=== PATIENT | female | born 1960 | race Hispanic/Latino ===

== ENCOUNTER 2018-08-11 18:29 | Emergency (ER) | payer BC, SELFPAY ==
[2018-08-11 18:29] VITALS: BP 162/81; PULSE 62; RESP 15; TEMP 36.8; O2SAT 97; BMI 30.4
--- NOTE | 2018-08-11 18:42 | EKG12_ITS ---
Test Reason : CP Blood Pressure : / mmHG Vent. Rate : 059 BPM Atrial Rate : 059 BPM P-R Int : 136 ms QRS Dur : 092 ms QT Int : 440 ms P-R-T Axes : 000 021 018 degrees QTc Int : 435 ms Sinus bradycardia Nonspecific T Wave Abnormality Confirmed by MARCELA JONES, KATIANA ([id number]), medical transcription editor SHANI TAYLOR ([id number]) on 08/14/2018 3:35:11 PM Referred By: MONTRELL Confirmed By:KATIANA MEDRANO MD
--- NOTE | 2018-08-11 20:27 | ED.VISSUMM ---
- ER Visit Summary Date of Service: 08/11/18 Chief Complaint: Left upper back, neck and shoulder discomfort. History of Present Illness: The patient is a 58 F past male history of high cholesterol. Patient states for the last week she is in intermittent upper back shoulder and neck discomfort. No chest pain. No shortness of breath. This is not exertional. She has had prior cardiac work-ups for similar pain all of which were negative with a recent stress test in the last 2 to 3 years. She states is worse to sit down or move her neck or shoulder she really does not seem like exertion plays any part in it at all and is definitely not worse and may actually be better with walking. She denies any fall or trauma. No fever. No prior neck or shoulder surgeries. Physical Examination: Well-appearing middle-aged female. Vital signs are stable afebrile. Pulse ox 97% room air no hypoxia. HEENT exam unremarkable. Normal. Neck nontender. No lymphadenopathy. Trachea midline. Normal range of motion to her neck with flexion and extension and rotation. Lungs clear to oscillation bilaterally. Heart regular rate and rhythm no murmur. Chest is completely nontender. Abdomen soft and nontender. She is moving all 4 extremities. Neurovascular intact. 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 Dorsi and plantar flexion intact. She has normal strength and sensation and range of motion both upper and lower extremities. With some movement of her neck the pain is mildly worse. There is no radiculopathy in her upper extremities. Back exam left upper shoulder is back has mild tenderness. There is no ecchymosis or bruising. No signs of trauma. Spine is nontender. Neurologic exam normal. Normal strength and sensation. No focal deficits. Test Results: EKG was done by the nurses due to triage protocol shows a sinus rhythm rate of 59 no acute signs of PR or ischemia. Clinically this is not sound like it is cardiac. Emergency Department Course and Treatment: Musculoskeletal neck and shoulder pain. Treatment Plan: Patient states this gets better at home with Tylenol. She will use Tylenol Motrin at home. Hot shower, warm bath and ice to the area. Follow-up with her primary care physician next week if not improving. Return to ER if worse. Disposition: Discharge Impression: Musculoskeletal left upper back, neck and shoulder pain. This note was generated with [employer] software. It may contain incorrect words, spelling, and punctuation that were not noted in review of the chart prior to signing ED Disposition - Plan for ED Patient: Referrals: Denis Pineda DO [Primary Care Provider] -
--- NOTE | 2018-08-11 20:30 | ED.DCSUM_ITS ---
- ER Visit Summary Date of Service: 08/11/18 Chief Complaint: Left upper back, neck and shoulder discomfort. History of Present Illness: The patient is a 58 F past male history of high cholesterol. Patient states for the last week she is in intermittent upper back shoulder and neck discomfort. No chest pain. No shortness of breath. This is not exertional. She has had prior cardiac work-ups for similar pain all of which were negative with a recent stress test in the last 2 to 3 years. She states is worse to sit down or move her neck or shoulder she really does not seem like exertion plays any part in it at all and is definitely not worse and may actually be better with walking. She denies any fall or trauma. No fever. No prior neck or shoulder surgeries. Physical Examination: Well-appearing middle-aged female. Vital signs are stable afebrile. Pulse ox 97% room air no hypoxia. HEENT exam unremarkable. Normal. Neck nontender. No lymphadenopathy. Trachea midline. Normal range of motion to her neck with flexion and extension and rotation. Lungs clear to oscillation bilaterally. Heart regular rate and rhythm no murmur. Chest is completely nontender. Abdomen soft and nontender. She is moving all 4 extremities. Neurovascular intact. Equal symmetrical 5 out of 5 telehealth case manager strength. Dorsi and plantar flexion intact. She has normal strength and sensation and range of motion both upper and lower extremities. With some movement of her neck the pain is mildly worse. There is no radiculopathy in her upper extremities. Back exam left upper shoulder is back has mild tenderness. There is no ecchymosis or bruising. No signs of trauma. Spine is nontender. Neurologic exam normal. Normal strength and sensation. No focal deficits. Test Results: EKG was done by the nurses due to triage protocol shows a sinus rhythm rate of 59 no acute signs of IN or ischemia. Clinically this is not sound like it is cardiac. Emergency Department Course and Treatment: Musculoskeletal neck and shoulder pain. Treatment Plan: Patient states this gets better at home with Tylenol. She will use Tylenol Motrin at home. Hot shower, warm bath and ice to the area. Follow- up with her primary care physician next week if not improving. Return to ER if worse. Disposition: Discharge Impression: Musculoskeletal left upper back, neck and shoulder pain. This note was generated with [employer] software. It may contain incorrect words, spelling, and punctuation that were not noted in review of the chart prior to signing ED Disposition - Plan for ED Patient: Referrals: Denis Pineda DO [Primary Care Provider] -
--- NOTE | 2018-08-11 20:30 | ED.DEP ---
ED Disposition - Plan for ED Patient: Disposition: Home or Assisted Living Instructions: ED Neck Pain No Trauma Referrals: Denis Pineda DO [Primary Care Provider] - 3-5 Days if not improving Additional Instructions: Tylenol and Motrin for pain and inflammation. Hot shower warm bath the muscles and ice to the area. Follow up with your doctor if not improving return to ER feeling worse. Clinically you have a normal exam and EKG I suspect this is a musculoskeletal pain.
--- NOTE | 2018-08-11 20:44 | ED.RN ---
DISCHARGE INSTRUCTIONS GIVEN TO AND REVIEWED WITH PATIENT, PATIENT DENIES QUESTIONS OR CONCERNS AND VOICES UNDERSTANDING OF DISCHARGE INSTRUCTIONS. PT AMBULATES OUT OF ROOM WITHOUT DIFFICULTY.
== END 2018-08-11 20:45 | disposition home or self-care (01) ==
PROVIDERS: Emergency Provider Emergency Medicine; Family Provider Student in an Organized Health Care Education/Training Program; PCP Student in an Organized Health Care Education/Training Program
DX: M54.6 Pain in thoracic spine (principal); M54.2 Cervicalgia; M25.512 Pain in left shoulder; E78.00 Pure hypercholesterolemia, unspecified
CPT/HCPCS: 93005; 99283

== ENCOUNTER 2019-06-03 00:05 | Emergency (ER) | payer BC, OTHER, SELFPAY ==
[2019-06-03] VITALS (7 sets, daily range): BP systolic 97–144; BP diastolic 46–69; PULSE 89–109; RESP 18–34; TEMP 37.3–37.9; O2SAT 93–96; BMI 30.7
--- NOTE | 2019-06-03 00:50 | RAD_ITS ---
HISTORY: FEVER AND COUGH ADDITIONAL HISTORY: None provided. COMPARISON: 01/14/2017 TECHNIQUE: Frontal and lateral chest radiographs. Number of images including paperwork: 2 FINDINGS: LUNGS AND PLEURA: No consolidation, mass or pleural effusion. Peribronchial thickening. CARDIAC SILHOUETTE: Stable. MEDIASTINUM AND CHERRY: Aortic tortuosity. UPPER ABDOMEN: Gaseous bowel distention in the upper abdomen. SKELETON AND SOFT TISSUES: No acute findings. Degenerative changes. OTHER DEVICES AND HARDWARE: None. RAD/Chest PA and Lateral IMPRESSION: Peribronchial thickening as can be seen with bronchitis and airways disease. at 0150 Reported and signed by: Meeta Hartman MD Electronically Signed: Meeta Hartman MD at 1:50 EST Tel , Service support ,
--- NOTE | 2019-06-03 00:51 | ED.VISSUMM ---
- ER Visit Summary Date of Service: 06/03/19 Chief Complaint: Fever and cough History of Present Illness: The patient is a 59 F who presents with a fever and cough that began yesterday. Patient states her fever at home was up to 105. Patient took Tylenol tonight prior to arrival. Patient admits to a cough but denies any sputum production. Patient states she feels wheezing in her chest at times. Patient also admits to some dysuria and hematuria. Patient states the pain radiates into her back. Patient denies any chest pain. Patient denies any nausea or vomiting but admits to some diarrhea. 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 Physical Examination: Vital signs are stable except for mild tachycardia of 109 and a mild tachypnea of 24. Patient is afebrile here. Patient is in no acute distress. Oral mucosa is pink and moist. Oropharynx is clear. Neck is supple. Trachea is midline. There is no JVD. Heart was regular and tachycardic. Lungs showed scattered rhonchi and wheezing. There is good respiratory effort. There is no retractions noted. Abdomen is soft. Bowel sounds are normal. There is no tenderness. Cranial nerves II through XII are intact. There are no focal motor or sensory deficits noted. Test Results: CBC was normal. Comprehensive metabolic profile was essentially within normal limits. Urinalysis does not show any evidence of urinary tract infection. PA and lateral chest x-ray was obtained. There is peribronchial thickening consistent with viral bronchitis. Emergency Department Course and Treatment: Patient was given IV fluids and DuoNeb aerosol here. Patient was advised of her results. Patient was instructed to drink plenty of fluids at home. Patient was instructed to take Tylenol or ibuprofen as needed for pain or fever. Patient was instructed to follow-up with her primary care physician in 5 to 7 days. Patient understood and was agreeable with the plan. All questions were answered. Disposition: Discharge home Impression: Viral bronchitis This note was generated with [employer] dictation software. It may contain incorrect words, spelling, and punctuation that were not noted in review of the chart prior to signing ED Disposition - Plan for ED Patient: Disposition: Home or Assisted Living Diagnosis: Viral bronchitis Instructions: BRONCHITIS, No Antibiotic (Adult) Referrals: Denis Pineda DO [Primary Care Provider] - 5-7 Days
[2019-06-03] MEDS: Ipratropium/Albuterol Sulfate 3 ML AMPUL.NEB INHALATION (00:56)
[2019-06-03] MEDS: 0.9% Normal Saline 1,000 ML 1000 ML IV ×2 (01:14→02:05)
[2019-06-03 01:22] LABS: Absolute Lymphocyte Count 0.52 X10^3/uL (0.83-4.51); Absolute Neutrophil Count 6.4 X10^3/uL (2.0-7.7); Basophil# 0.02 X10^3/uL; Basophil% 0.3 % (0-1); Eosinophil# 0.02 X10^3/uL; Eosinophils% 0.3 % (0-5); Hematocrit 43.6 % (37-47); Hemoglobin 14.4 g/dL (12.0-15.0); Lymphocyte # 0.52 X10^3/ul (4.0); Lymphocyte % 6.9 % (19-41); Mean Corpuscular Hgb 27.5 pg (27.0-32.0); Mean Corpuscular Volume 83.4 fL (81-99); Mean Platelet Vol. 11.2 fl (6.2-12.0); Monocyte# 0.58 X10^3/uL; Monocyte% 7.7 % (0-10); NRBC Flagged by Analyzer 0 % (0-5); Neutrophil # 6.35 X10^3/uL (2.7-7.7); Neutrophil % 84.3 % (47-70); POSITIVE DIFFERENTIAL YES; Platelet Count 171 K/mm3 (150-450); RBC Distribution Width CV 12.3 % (11.6-14.6); RBC Distribution Width SD 37.4 fl (35.1-43.9); Red Blood Count 5.23 M/mm3 (4.2-5.4); White Blood Count 7.5 K/mm3 (4.4-11.0)
[2019-06-03 01:25] LABS: Mucous, Urine 0 SEEN /hpf (<or=2+)
[2019-06-03 01:25] LABS: Differential Indicated SCAN CRITERIA MET
[2019-06-03 01:37] LABS: ALB/GLOB Ratio 0.9 RATIO (0.9-2.4); AST(SGOT) 20 U/L (15-37); Alanine Aminotransfer ALT/SGPT 30 U/L (13-56); Albumin, Serum 3.6 g/dL (3.2-5.0); Alkaline Phosphatase 90 U/L (45-117); Anion Gap 5 (5-15); BUN 10 mg/dL (7-18); BUN/Creat Ratio 13.7 RATIO (10-20); Calcium,Total 8.7 mg/dL (8.5-10.1); Chloride 101 mmol/L (98-107); Creatinine, Serum 0.73 mg/dL (0.55-1.02); EST Glomerular Filtration Rate 87 mL/min (>60); Est Glom Filt Rate - Afr Amer 106 mL/min (>60); Estimated Creatinine Clearance 70.34 ml/min; Glucose 121 mg/dL (74-106); Potassium 3.8 mmol/L (3.5-5.1); Protein, Total 7.6 g/dL (6.4-8.2); Sodium Level 134 mmol/L (136-145)
[2019-06-03 01:41] LABS: Color, Urine Yellow (Yellow); Glucose, Dipstick Normal (Normal); Ketone-Dipstick Negative (Negative); Leukocyte Esterase-Dipstick Negative /ul (Negative); Nitrite-Dipstick Negative (Negative); Occult Blood-Urine 250 /ul (Negative); Protein-Dipstick 30 mg/dl (Negative); Urine Bilirubin Dipstick Negative (Negative); Urine Clarity Sl. Cloudy (Clear); Urine Urobilinogen 1 mg/dl (Normal); Urine pH 6.5 (5.0 - 8.0)
[2019-06-03 01:48] LABS: Bacteria 1+ /hpf (None Seen); Red Blood Cells-Urine 5-10 SEEN /hpf (0-5); Squamous Epithelial Cells - UA 0-5 SEEN /hpf (5-10); White Blood Cells 0-5 SEEN /hpf (0-5)
== END 2019-06-03 03:54 | disposition home or self-care (01) ==
PROVIDERS: Emergency Provider Emergency Medicine; PCP Student in an Organized Health Care Education/Training Program
DX: J20.8 Acute bronchitis due to other specified organisms (principal)
CPT/HCPCS: 71046; 80053; 81001; 85025; 94640; 96360; 96361; 99284; J7030; A4216

== ENCOUNTER 2019-06-05 00:11 | Emergency (ER) | payer BC, SELFPAY ==
[2019-06-03 00:07] VITALS: BMI 30.7
[2019-06-05 00:12] VITALS: BP 121/73; PULSE 74; RESP 20; TEMP 36.9; O2SAT 94; BMI 30.1
--- NOTE | 2019-06-05 00:59 | RAD_ITS ---
STUDY: X-RAY CHEST REASON FOR EXAM: Female, 59 years old. WAS JUST SEEN TUESDAY FOR A COUGH, NOT FEELING ANY BETTER SO SHE CAME BACK IN TECHNIQUE: PA and lateral views of the chest. COMPARISON: June 03, 2019 chest x-ray FINDINGS: The lungs are clear and expanded. The suggestion of mild peribronchial thickening. Normal size heart. Normal mediastinum and josiah. Normal visualized pulmonary arteries. Normal visualized aortic arch and descending thoracic aorta. There are diffuse degenerative changes of the visualized thoracic spine. Normal visualized ribs, clavicles, and shoulders. There is no demonstrated abnormality of the visualized soft tissue structures of the upper abdomen. RAD/Chest PA and Lateral IMPRESSION: Mild peribronchial thickening could consider bronchitis. Electronically Signed: Carmina Sanchez MD at 1:40 EST Tel , Service support ,
--- NOTE | 2019-06-05 01:14 | ED.DCSUM_ITS ---
History of Present Illness Chief Complaint: General Illness Informant: Patient Onset: Days Context: Gradual Onset Timing: Continuous Worsened by: Coughing Associated Symptoms: Cough, Ear pain, Fever, Rhinorrhea, Sore throat Chest Pain: None, Tightness Narrative: Patient is a 59-year-old female with a questional history of hypothyroid and low potassium as well as asymptomatic hematuria presenting with persistent flulike symptoms. 4 days ago she was seen in urgent care. She was flu swab and diagnosed with a viral illness. She was started on Mucinex. She knows she was not feeling better. 2 days ago she was seen in the ER for the same complaints. She was having fever and cough. She had a work-up including a chest x-ray and blood work. Was all normal. Patient was discharged home with a diagnosis of a viral upper respiratory infection. Patient states she is continued to feel poorly. She feels very weak. She not eating or drinking much. She feels her light surgery. She has a headache and sinus congestion. She has associated sore throat and myalgias. States she feels dizzy but is not feeling she is got passed out. She has no associated nausea or vomiting but has had some mild diarrhea. She denies any black or blood in her stool. She has a nonproductive cough. States she feels like there is sputum and that that needs to come out but it will not. She denies any other complaints at this time. Past Medical History - Allergies and Home Meds Allergies/Adverse Reactions: Allergies No Known Allergies Allergy (Verified 06/05/19 00:12) Primary Care Physician: Denis Pineda DO [Primary Care Provider] - Past Medical History: - - Patient is not take any medications but she has been told she has low thyroid, low potassium and hematuria Surgical History: noncontributory Lives: Spouse/ Significant Other Smoking Status: Never smoker Review of Systems General: Reports: Chills, Fever, Malaise. Denies: Sweats Eyes: Denies: Visual changes - bilaterally, Blurred Vision - bilaterally ENT: Reports: Bilateral ear pain, Rhinorrhea, Sore throat, - - Sinus congestion Cardiovascular: Denies: Chest pain, Palpitations Respiratory: Reports: Cough. Denies: Dyspnea, Sputum, Dyspnea on exertion Gastrointestinal: Reports: Diarrhea. Denies: Abdominal pain, Nausea, Vomiting, Melena, Hematochezia Genitourinary: Denies: Dysuria, Hematuria, Frequency Musculoskeletal: Reports: Myalgias Skin: Denies: Rash Neurological: Reports: Headache. Denies: Weakness, Numbness Physical Exam Vital Signs/Narrative: Vital Signs Temp Pulse Resp BP Pulse Ox 06/05/19 00:12 98.5 F 74 20 H 121/73 H 94 Inital Vital Signs reviewed: Yes General: Well nourished, Well developed Head: Normocephalic, Atraumatic Eyes: Perrl, EOMI ENT: Moist mucous membranes, No rhinorrhea, TM's clear, Sinus tenderness Neck: Supple, Nontender Cardiovascular: Regular rate, Regular rhythm, No murmurs Respiratory: No distress, Rhonchi - Right base. Negative for: Wheezing, Diminished, Decreased Air Movement Abdomen: Soft, Nontender, Nondistended, Normal bowel sounds Back: Nontender, Normal Inspection Extremities: Nontender, No edema Skin: Normal color, No rash Neurological: Alert, Oriented x3, Cranial nerves II-XII grossly intact, Normal Strength, Normal Sensation Psychological: Normal affect Diagnostic/Tx/Re-eval Chest X-Ray - ED: 2 View, Read by ED Physician, Read by Radiologist, No Acute Disease Clinical Impression(s) from Imaging Studies Chest X-Ray 06/05/19 00:59 IMPRESSION: Mild peribronchial thickening could consider bronchitis. Electronically Signed: Carmina Sanchez MD at 1:40 EST Tel , Service support , Laboratory Data 06/05/19 06/05/19 01:24 01:24 WBC 3.2 L RBC 5.51 H Hgb 15.2 H Hct 46.6 MCV 84.6 MCH 27.6 MCHC 32.6 RDW Std Deviation 36.8 RDW Coeff of Regla 11.9 Plt Count 179 MPV 10.5 Immature Gran % (Auto) 0.300 Neut % (Auto) 62.1 Lymph % (Auto) 25.1 [place] % (Auto) 12.2 H Eos % (Auto) 0.0 Baso % (Auto) 0.3 Absolute Neuts (auto) 2.0 Absolute Lymphs (auto) 0.80 L Nucleated RBC % 0 Sodium 136 Potassium 3.3 L Chloride 101 Carbon Dioxide 30.0 Anion Gap 5 BUN 7 Creatinine 0.72 Estim Creat Clear Calc 71.31 Est GFR (MDRD) Af Amer 108 Est GFR (MDRD) Non-Af 89 BUN/Creatinine Ratio 9.8 L Glucose 112 H Calcium 8.9 Total Creatine Kinase 110 Troponin I < 0.015 TSH 6.61 H - Medical Decision Making Is evaluated for 3 to 4 days of a flulike illness. She previously had a negative flu swab however clinically she either has influenza or another viral illness. CBC is normal. She has a mild leukopenia which is suggestive of a viral infection. Chest x-ray does not show pneumonia but it does show inflammatory changes again consistent with bronchitis. As patient is having chest discomfort and is above the age of 50 I did order an EKG however patient refused stating she does not need it there is nothing wrong with her heart. Troponin is normal. I do have a low suspicion for myocarditis or pericarditis. Patient is complained of myalgias I did check a CPK. This is normal. Do not suspect significant myositis. BMP shows a mild hypokalemia. Patient is given a one-time replacement dose of potassium. Finally patient is found to have a slightly elevated TSH. She likely does have some underlying hypothyroid but she is not in myxedema coma and does not require emergent replacement. Patient is given Toradol and fluids. On reevaluation she is feeling much better. She be discharged home with Motrin 600 for symptom control. She is counseled extensively on the importance of following up with her primary care provider especially for her thyroid. She is counseled on the typical course of viral illness such as bronchitis or influenza. Patient is counseled on signs and symptoms requiring return to the emergency room. Patient verbalizes agreement and understand this plan. Patient discharged home in stable and improved condition. ED Disposition - Plan for ED Patient: Disposition: Home or Assisted Living Diagnosis: Flu-like symptoms, Bronchitis Instructions: VIRAL SYNDROME (Adult), BRONCHITIS, No Antibiotic (Adult) Prescriptions: Ibuprofen [Motrin] 600 mg PO Q6H PRN PRN #20 tab PRN Reason: Pain Or Fever Prescription Printed Referrals: Denis Pineda DO [Primary Care Provider] - Additional Instructions: It is very important that you follow-up with your primary care doctor. I suspect you either have the flu or another upper respiratory viral illness. It is not unusual to have fevers for 5 to 7 days with this and lingering cough for up to 2-1/2 to 3 weeks. Take ibuprofen as needed for body aches and headache. Drink plenty of fluids. You can continue to take Mucinex for congestion. Your potassium was mildly low. Your TSH was a marker of your thyroid was elevated which is consistent with hypothyroid. Is very importantly follow-up with your primary care doctor for further evaluation of these things.
[2019-06-05] MEDS: Ketorolac 15 MG/ML Vial IV (01:22)
[2019-06-05] MEDS: 0.9% Normal Saline 1,000 ML 999 ML IV (01:22)
[2019-06-05 01:32] LABS: Basophil# 0.01 X10^3/uL; Basophil% 0.3 % (0-1); Hematocrit 46.6 % (37-47); Hemoglobin 15.2 g/dL (12.0-15.0); Lymphocyte % 25.1 % (19-41); Mean Corp Hgb Conc 32.6 g/dL (32-36); Mean Corpuscular Hgb 27.6 pg (27.0-32.0); Mean Corpuscular Volume 84.6 fL (81-99); Mean Platelet Vol. 10.5 fl (6.2-12.0); Monocyte# 0.39 X10^3/uL; Monocyte% 12.2 % (0-10); NRBC Flagged by Analyzer 0 % (0-5); Neutrophil # 1.98 X10^3/uL (2.7-7.7); Neutrophil % 62.1 % (47-70); Platelet Count 179 K/mm3 (150-450); RBC Distribution Width CV 11.9 % (11.6-14.6); RBC Distribution Width SD 36.8 fl (35.1-43.9); Red Blood Count 5.51 M/mm3 (4.2-5.4); White Blood Count 3.2 K/mm3 (4.4-11.0)
[2019-06-05 01:57] LABS: Anion Gap 5 (5-15); BUN 7 mg/dL (7-18); BUN/Creat Ratio 9.8 RATIO (10-20); CPK Total, Creatine Kinase 110 U/L (26-192); Calcium,Total 8.9 mg/dL (8.5-10.1); Chloride 101 mmol/L (98-107); Creatinine, Serum 0.72 mg/dL (0.55-1.02); EST Glomerular Filtration Rate 89 mL/min (>60); Est Glom Filt Rate - Afr Amer 108 mL/min (>60); Estimated Creatinine Clearance 71.31 ml/min; Glucose 112 mg/dL (74-106); Potassium 3.3 mmol/L (3.5-5.1); Sodium Level 136 mmol/L (136-145); Thyroid Stim Hormone (TSH) 6.61 uIU/mL (0.358-3.74)
[2019-06-05 04:18] VITALS: PULSE 82; RESP 16; O2SAT 95
== END 2019-06-05 04:19 | disposition home or self-care (01) ==
PROVIDERS: Emergency Provider Emergency Medicine; PCP Student in an Organized Health Care Education/Training Program
DX: J40 Bronchitis, not specified as acute or chronic (principal); M79.10 Myalgia, unspecified site; E87.6 Hypokalemia; E03.9 Hypothyroidism, unspecified
CPT/HCPCS: 71046; 80048; 82550; 84443; 84484; 85025; 96361; 96374; 99283; J7030